=== PATIENT | male | born 1950 | race Hispanic/Latino ===

== ENCOUNTER → 2018-06-21 | Outpatient (CLI) | payer OTHER ==
[~2018-06-21] MED LIST: AMLODIPINE BESYL5 MG PO; DAKLINZA PO; NEXIUM40 MG PO; SOVALDI PO; [UNRECOGNIZED DRUG - OTHER] PO
--- NOTE | 2018-06-22 09:41 | Diagnostic Imaging Report ---
EXAM: Abdomen 1 Views INDICATION: ^CALCULUS OF KIDNEY COMPARISON: None FINDINGS: Moderate amount of stool in the colon. No dilated loops of small bowel. Left double-J ureteral stent in place. 1.2 cm stone in the inferior pole of the left kidney. No abnormal soft tissue masses. Shrapnel overlying the right hemipelvis. Mild degenerative changes in the lumbar spine and pelvis. IMPRESSION: 1. Left double-J ureteral stent in place. 2. 1.2 cm stone in the inferior pole of the left kidney. Signed by: Dr. Suleiman Crawley M.D. on 06/22/2018 9:38 AM
== END ==
LOC: RAD 10:54
PROVIDERS: ATTEND Urology
DX: R31.21 Asymptomatic microscopic hematuria (principal); N20.0 Calculus of kidney
CPT/HCPCS: 74018

== ENCOUNTER → 2018-08-12 | Outpatient (CLI) | payer MEDICARE, OTHER ==
--- NOTE | 2018-08-12 13:49 | Diagnostic Imaging Report ---
Exam: KUB - 2 views Clinical History: Renal calculus. Comparison: KUB 06/21/2018. Findings: There is a left-sided internal ureteral stent with the proximal pigtail overlying the left kidney and the distal pigtail overlying the bladder. Bowel gas partially obscures visualization of the kidneys. Previously noted 1.2 cm calcification overlying the left inferior pole kidney is not visualized. There are scattered calcifications measuring 2 mm overlying the bilateral kidneys. Likely calcified phleboliths project over the left pelvis. Nonobstructive bowel gas pattern. Moderate amount of stool in the colon. Shrapnel overlies the right hemipelvis. Impression: Left internal ureteral stent as above. Previously noted 1.2 cm calcification overlying the left inferior pole kidney is not visualized, possibly secondary to technique if there has not been interval intervention. Possible bilateral nephrolithiasis as above. Signed by: Dr. Joesph De La Cruz MD on 08/12/2018 1:46 PM
== END ==
LOC: RAD 08:21
PROVIDERS: ATTEND Urology
DX: N20.0 Calculus of kidney (principal)
CPT/HCPCS: 74018

== ENCOUNTER → 2019-09-26 | Day surgery (SDC) | payer MEDICARE, OTHER ==
[2019-09-22 12:24] LABS: BASOPHILS % 0.4 % (0.0-1.0); EOSINOPHILS # (AUTO) 0.1 (0.0-0.4); EOSINOPHILS % 2.5 % (0.0-6.0); HEMATOCRIT 38.5 % (38.2-49.6); HEMOGLOBIN 12.9 g/dL (14.0-18.0); LYMPHOCYTES # (AUTO) 0.6 (1.0-3.2); LYMPHOCYTES % 20.1 % (18.0-39.1); MEAN CORPUSCULAR HEMOGLOBIN 31.9 pg (28-32); MEAN CORPUSCULAR HGB CONC 33.5 g/dL (31-35); MEAN CORPUSCULAR VOLUME 95.1 fL (81-99); MONOCYTES # (AUTO) 0.2 (0.2-0.8); MONOCYTES % 8.6 % (4.4-11.3); NEUTROPHILS # (AUTO) 1.9 (2.1-6.9); PLATELET COUNT 79 x10e3/uL (140-360); RED BLOOD COUNT 4.05 x10e6/uL (4.3-5.7); RED CELL DISTRIBUTION WIDTH 13.4 % (11.7-14.4)
--- NOTE | 2019-09-22 12:51 | Diagnostic Imaging Report ---
EXAMINATION: CHEST 2 VIEWS INDICATION: SCREENING COMPARISON: None FINDINGS: TUBES and LINES: None. LUNGS: Lungs are well inflated. There is no evidence of pneumonia or pulmonary edema. Mild central bronchial wall thickening. PLEURA: No pleural effusion or pneumothorax. HEART AND MEDIASTINUM: The cardiomediastinal silhouette is unremarkable. There are atherosclerotic calcifications within the aorta. BONES AND SOFT TISSUES: No acute osseous lesion. Soft tissues are unremarkable. UPPER ABDOMEN: No free air under the diaphragm. IMPRESSION: No evidence of pneumonia. Mild central bronchial wall thickening, which may be seen in the setting of bronchitis or reactive airway disease. Signed by: Dr. Joesph De La Cruz MD on 09/22/2019 12:47 PM
[~2019-09-26] MED LIST changes: +ALLOPURINOL100 MG PO; +B&O 60MG R/S 60 MG SUPP PR ONE; +DEXAMETHASONE SOD PHOS INJ 4 MG/ML VIAL ONE; +EPHEDRINE SULFATE INJ 50 MG/ML VIAL ONE; +FENTANYL CITRATE/PF 100MCG/2 ML INJ ONE; +FLOMAX0.4 MG PO; +GENTAMICIN 80MG/NS 100 ML 100 ML IV ONE; +IOPAMIDOL 300MG/ML 50ML INFUS..BTL IV ONE; +LEVOFLOXACIN 500MG/D5W 100ML 100 ML IV ONE; +LEVOFLOXACIN250 MG PO; +LIDOCAINE HCL 2% LOCAL INJ 5 ML SDV VIAL INJ ONE; +LOSARTAN POTASS25 MG PO; +METFORMIN HCL500 MG PO; +ONDANSETRON HCL INJ 2MG/ML 2ML 2 MG/ML VIAL ONE; +PROPOFOL IV EMULSION 10 MG/ML 20 ML VIAL ONE; +SEVOFLURANE INHAL SOLN 250 ML PEN BTL ONE
[2019-09-26 11:42] LABS: INR 1.05; PROTHROMBIN TIME 14.2 seconds (11.9-14.5)
[2019-09-26 14:10] VITALS: BP 138/83
--- NOTE | 2019-09-27 00:08 | Operative Report ---
DATE OF PROCEDURE: 09/26/2019 SURGEON: Jasbir Persaud MD SERVICE: Urology. PREOPERATIVE DIAGNOSES: 1. Elevated and rising PSA. 2. Benign prostatic hyperplasia with obstruction. 3. Bladder diverticulum. 4. Microhematuria. POSTOPERATIVE DIAGNOSES: 1. Elevated and rising PSA. 2. Benign prostatic hyperplasia with obstruction. 3. Bladder diverticulum. 4. Microhematuria. OPERATIONS PERFORMED: 1. Cystoscopy and bilateral retrograde pyelograms under fluoroscopic control. 2. Interpretation of x-ray, radiologist not present. 3. Supervision of fluoroscopy, radiologist not present. 4. Ultrasound of the prostate. 5. Ultrasound guidance of prostate biopsy, six from each side. TECHNICAL SERVICES MANAGER: None. ANESTHESIA: General. CLINICAL INDICATION NOTE: This is a 68-year-old patient with several medical problems including rising PSA and low free PSA. The patient has significant voiding symptoms of frequency, urgency, and nocturia. He was brought for reassessment of both operative tract as well as prostate biopsy. Prostate biopsy in the past was negative for malignancy. However, the PSA increased in level. Procedure was discussed with the patient. Potential benefits and complications were discussed, explained, and accepted. DESCRIPTION OF PROCEDURE AND FINDINGS: After proper level of anesthesia was achieved, the patient was placed in lithotomy position, prepped and draped in usual sterile fashion. Diluted enema with Betadine was done. Urethra inspected, unremarkable at the orifice, obstructed by enlarged prostate; measuring on the ultrasound, 77 g. Blood is quite trabeculated. Diverticula is present. practically on the ream of the diverticulum. It was possible to insert open-end catheters bilaterally and to retrograde upper tract normal. There was as expected from enlarged prostate. The bladder was then filled up with irrigation fluid and ultrasound examination of the prostate was done. Prostate measured 44 ccm. He had no definitive lesion within the prostate. Following this, 6 cores of prostate were obtained from each side, 2 at the base, 2 in the center, 2 at the apex. B and O suppository was placed at the end of the procedure and patient was transferred in satisfactory condition to postop area. He did have antibiotic to stop it a day before procedure. Will continue several days. Follow up in the office and pain medicine was given. MD JOANNE Ellis/PRISCA /[id number]
== END | disposition home or self-care (01) ==
LOC: OR 10:01
PROVIDERS: ATTEND Urology
DX: C61 Malignant neoplasm of prostate (principal); N41.1 Chronic prostatitis; N40.1 Benign prostatic hyperplasia with lower urinary tract symptoms; N13.8 Other obstructive and reflux uropathy; R35.0 Frequency of micturition; R35.1 Nocturia; R39.15 Urgency of urination; N32.3 Diverticulum of bladder; N20.0 Calculus of kidney; I10 Essential (primary) hypertension; I49.3 Ventricular premature depolarization; Z88.1 Allergy status to other antibiotic agents; Z01.810 Encounter for preprocedural cardiovascular examination; Z01.812 Encounter for preprocedural laboratory examination; Z01.818 Encounter for other preprocedural examination; Z11.59 Encounter for screening for other viral diseases; Z79.84 Long term (current) use of oral hypoglycemic drugs; Z86.19 Personal history of other infectious and parasitic diseases; Z87.891 Personal history of nicotine dependence
CPT/HCPCS: 36415 ×2; 52005; 55700; 71046; 74420; 76872; 76998; 82948; 85025; 85610; 85730; 88305; 88342; 93005; C1758; J1100; J1580; J1956; J2001; J2405; J2704; Q9967; U0002; J3010

== ENCOUNTER → 2020-03-10 | Day surgery (SDC) | payer MEDICARE ==
[2020-03-08 09:41] LABS: BASOPHILS % 0.6 % (0.0-1.0); EOSINOPHILS # (AUTO) 0.1 (0.0-0.4); EOSINOPHILS % 5.6 % (0.0-6.0); HEMOGLOBIN 10.8 g/dL (14.0-18.0); LYMPHOCYTES # (AUTO) 0.2 (1.0-3.2); MEAN CORPUSCULAR HEMOGLOBIN 32.7 pg (28-32); MEAN CORPUSCULAR HGB CONC 33.8 g/dL (31-35); MONOCYTES # (AUTO) 0.2 (0.2-0.8); MONOCYTES % 11.2 % (4.4-11.3); NEUTROPHILS # (AUTO) 1.1 (2.1-6.9); NEUTROPHILS % 69.6 % (38.7-80.0); PLATELET COUNT 67 x10e3/uL (140-360); RED CELL DISTRIBUTION WIDTH 14.8 % (11.7-14.4)
[2020-03-08 09:52] LABS: INR 1.13; PROTHROMBIN TIME 15.2 seconds (11.9-14.5)
[2020-03-08 09:53] LABS: PARTIAL THROMBOPLASTIN TIME 32.6 seconds (23.8-35.5)
[2020-03-08 10:02] LABS: ALANINE AMINOTRANSFERASE 28 IU/L (0-55); ALBUMIN 3.6 g/dL (3.5-5.0); ALBUMIN/GLOBULIN RATIO 1.1 (0.8-2.0); ALKALINE PHOSPHATASE 83 IU/L (40-150); ANION GAP 12.5 mmol/L (8-16); BLOOD UREA NITROGEN 11 mg/dL (7-26); BUN/CREATININE RATIO 15 (6-25); CALCIUM 9.1 mg/dL (8.4-10.2); CARBON DIOXIDE 26 mmol/L (22-29); CHLORIDE 107 mmol/L (98-107); CREATININE, SERUM 0.72 mg/dL (0.72-1.25); EST GLOMERULAR FILTRATION RATE > 60 ML/MIN (60-); GLUCOSE 117 mg/dL (74-118); POTASSIUM 3.5 mmol/L (3.5-5.1); SODIUM 142 mmol/L (136-145)
[~2020-03-10] MED LIST changes: -B&O 60MG R/S 60 MG SUPP PR ONE; -DEXAMETHASONE SOD PHOS INJ 4 MG/ML VIAL ONE; -EPHEDRINE SULFATE INJ 50 MG/ML VIAL ONE; -FENTANYL CITRATE/PF 100MCG/2 ML INJ ONE; -GENTAMICIN 80MG/NS 100 ML 100 ML IV ONE; -IOPAMIDOL 300MG/ML 50ML INFUS..BTL IV ONE; -LEVOFLOXACIN 500MG/D5W 100ML 100 ML IV ONE; -ONDANSETRON HCL INJ 2MG/ML 2ML 2 MG/ML VIAL ONE; -SEVOFLURANE INHAL SOLN 250 ML PEN BTL ONE
[2020-03-10 12:25] VITALS: BP 143/83
== END | disposition home or self-care (01) ==
LOC: OR 09:29
PROVIDERS: ATTEND Internal Medicine Gastroenterology
DX: D64.9 Anemia, unspecified (principal); K29.00 Acute gastritis without bleeding; K26.3 Acute duodenal ulcer without hemorrhage or perforation; K74.60 Unspecified cirrhosis of liver; I85.10 Secondary esophageal varices without bleeding; K44.9 Diaphragmatic hernia without obstruction or gangrene; K31.89 Other diseases of stomach and duodenum; K76.6 Portal hypertension; Z86.010 Personal history of colon polyps; K57.30 Diverticulosis of large intestine without perforation or abscess without bleeding; B19.20 Unspecified viral hepatitis C without hepatic coma; E11.9 Type 2 diabetes mellitus without complications; I10 Essential (primary) hypertension; N20.0 Calculus of kidney; Z88.1 Allergy status to other antibiotic agents; Z01.810 Encounter for preprocedural cardiovascular examination; Z01.812 Encounter for preprocedural laboratory examination; Z20.822 Contact with and (suspected) exposure to COVID-19; Z79.84 Long term (current) use of oral hypoglycemic drugs; Z87.891 Personal history of nicotine dependence
CPT/HCPCS: 36415 ×2; 43239; 43244; 80053; 82948; 85025; 85610; 85730; 88305; 88312; 93005; J2001; J2704; U0002; 43255

== ENCOUNTER → 2020-04-07 | Day surgery (SDC) | payer MEDICARE ==
[2020-04-07 13:30] VITALS: BP 144/77
== END | disposition home or self-care (01) ==
LOC: OR 09:31
PROVIDERS: ATTEND Internal Medicine Gastroenterology
DX: K74.60 Unspecified cirrhosis of liver (principal); I85.10 Secondary esophageal varices without bleeding; K29.00 Acute gastritis without bleeding; K44.9 Diaphragmatic hernia without obstruction or gangrene; C61 Malignant neoplasm of prostate; I10 Essential (primary) hypertension; E11.9 Type 2 diabetes mellitus without complications; Z88.1 Allergy status to other antibiotic agents; K76.6 Portal hypertension; K31.89 Other diseases of stomach and duodenum; Z01.812 Encounter for preprocedural laboratory examination; Z20.822 Contact with and (suspected) exposure to COVID-19; Z79.84 Long term (current) use of oral hypoglycemic drugs; Z86.19 Personal history of other infectious and parasitic diseases
CPT/HCPCS: 36415; 43239; 82948; 88305; 88312; J2001; J2704; U0002

== ENCOUNTER → 2020-04-21 | Day surgery (SDC) | payer MEDICARE ==
[2020-04-19 09:37] LABS: BASOPHILS % 0.8 % (0.0-1.0); EOSINOPHILS # (AUTO) 0.1 (0.0-0.4); EOSINOPHILS % 4.5 % (0.0-6.0); HEMATOCRIT 35.2 % (38.2-49.6); HEMOGLOBIN 11.7 g/dL (14.0-18.0); LYMPHOCYTES # (AUTO) 0.4 (1.0-3.2); LYMPHOCYTES % 15.6 % (18.0-39.1); MEAN CORPUSCULAR HEMOGLOBIN 31.9 pg (28-32); MEAN CORPUSCULAR HGB CONC 33.2 g/dL (31-35); MEAN CORPUSCULAR VOLUME 95.9 fL (81-99); MONOCYTES # (AUTO) 0.2 (0.2-0.8); MONOCYTES % 9.9 % (4.4-11.3); NEUTROPHILS # (AUTO) 1.7 (2.1-6.9); NEUTROPHILS % 68.8 % (38.7-80.0); PLATELET COUNT 71 x10e3/uL (140-360); RED BLOOD COUNT 3.67 x10e6/uL (4.3-5.7); RED CELL DISTRIBUTION WIDTH 14.2 % (11.7-14.4)
[2020-04-19 09:54] LABS: ALANINE AMINOTRANSFERASE 37 IU/L (0-55); ALBUMIN 3.9 g/dL (3.5-5.0); ALKALINE PHOSPHATASE 88 IU/L (40-150); ANION GAP 13.3 mmol/L (8-16); BLOOD UREA NITROGEN 19 mg/dL (7-26); BUN/CREATININE RATIO 25 (6-25); CALCIUM 9.3 mg/dL (8.4-10.2); CARBON DIOXIDE 26 mmol/L (22-29); CHLORIDE 109 mmol/L (98-107); CREATININE, SERUM 0.77 mg/dL (0.72-1.25); EST GLOMERULAR FILTRATION RATE > 60 ML/MIN (60-); GLUCOSE 132 mg/dL (74-118); POTASSIUM 4.3 mmol/L (3.5-5.1); SODIUM 144 mmol/L (136-145)
[2020-04-19 10:21] LABS: INR 1.14; PROTHROMBIN TIME 15.4 seconds (11.9-14.5)
[2020-04-19 10:22] LABS: PARTIAL THROMBOPLASTIN TIME 31.1 seconds (23.8-35.5)
[~2020-04-21] MED LIST changes: +BUPIVACAINE 0.25% 30ML SDV ONE; +DEXAMETHASONE SOD PHOS INJ 4 MG/ML VIAL ONE; +FENTANYL CITRATE/PF 100MCG/2 ML INJ ONE; +GLYCOPYRROLATE INJ 0.2 MG/ML VIAL ONE; +MIDAZOLAM HCL 2 MG/2 ML VIAL ONE; +NEOSTIGMINE 1 MG/ML 10ML VIAL ONE; +OMEPRAZOLE40 MG PO; +ONDANSETRON HCL INJ 2MG/ML 2ML 2 MG/ML VIAL ONE; +ROCURONIUM BROMIDE 10 MG/ML 5ML VIAL IV ONE; +SEVOFLURANE INHAL SOLN 250 ML PEN BTL ONE
[2020-04-21 14:05] VITALS: BP 146/87
== END | disposition home or self-care (01) ==
LOC: OR 07:07
PROVIDERS: ATTEND Surgery
DX: K40.90 Unilateral inguinal hernia, without obstruction or gangrene, not specified as recurrent (principal); C61 Malignant neoplasm of prostate; I10 Essential (primary) hypertension; D69.6 Thrombocytopenia, unspecified; E11.9 Type 2 diabetes mellitus without complications; K21.9 Gastro-esophageal reflux disease without esophagitis; K74.60 Unspecified cirrhosis of liver; I85.10 Secondary esophageal varices without bleeding; H91.90 Unspecified hearing loss, unspecified ear; Z88.1 Allergy status to other antibiotic agents; Z88.0 Allergy status to penicillin; Z01.812 Encounter for preprocedural laboratory examination; Z20.822 Contact with and (suspected) exposure to COVID-19; Z79.84 Long term (current) use of oral hypoglycemic drugs; Z87.891 Personal history of nicotine dependence; Z86.19 Personal history of other infectious and parasitic diseases
CPT/HCPCS: 36415 ×2; 49505; 80053; 82948; 85025; 85610; 85730; C1781; J1100; J2001; J2250; J2405; J2704; J2710; J3010; U0002

== ENCOUNTER → 2022-05-03 | Outpatient (CLI) | payer MEDICARE ==
[~2022-05-03] MED LIST changes: -BUPIVACAINE 0.25% 30ML SDV ONE; -DEXAMETHASONE SOD PHOS INJ 4 MG/ML VIAL ONE; -FENTANYL CITRATE/PF 100MCG/2 ML INJ ONE; -GLYCOPYRROLATE INJ 0.2 MG/ML VIAL ONE; -LIDOCAINE HCL 2% LOCAL INJ 5 ML SDV VIAL INJ ONE; -MIDAZOLAM HCL 2 MG/2 ML VIAL ONE; -NEOSTIGMINE 1 MG/ML 10ML VIAL ONE; -ONDANSETRON HCL INJ 2MG/ML 2ML 2 MG/ML VIAL ONE; -PROPOFOL IV EMULSION 10 MG/ML 20 ML VIAL ONE; -ROCURONIUM BROMIDE 10 MG/ML 5ML VIAL IV ONE; -SEVOFLURANE INHAL SOLN 250 ML PEN BTL ONE
== END ==
LOC: RAD 08:47
PROVIDERS: ATTEND Nurse Practitioner Adult Health
DX: Z12.2 Encounter for screening for malignant neoplasm of respiratory organs (principal); F17.211 Nicotine dependence, cigarettes, in remission
CPT/HCPCS: 71250; 93306